=== PATIENT | male | born 1985 | race Caucasian/White ===

== ENCOUNTER 2022-05-30 13:27 | Outpatient (CLI) | payer BC | END 2022-05-30 13:28 | disposition home or self-care (01) | LOC: ULT 13:27 | PROVIDERS: ATTEND Internal Medicine Cardiovascular Disease | DX: R00.2 Palpitations (principal); I49.3 Ventricular premature depolarization | CPT/HCPCS: 93306 ==

== ENCOUNTER 2022-06-06 13:39 | Outpatient (CLI) | payer BC | END 2022-06-06 13:40 | disposition home or self-care (01) | PROVIDERS: ATTEND Internal Medicine Cardiovascular Disease | DX: I49.3 Ventricular premature depolarization (principal); R00.2 Palpitations | CPT/HCPCS: 93017 ==